=== PATIENT | male | born 1975 | race Caucasian/White ===

== ENCOUNTER 2016-10-24 05:17 | Emergency (ER) | payer MEDICAID ==
[~2016-10-24] VITALS: Ht 172.7 cm; Wt 90.7 kg
[2016-10-24 05:20] VITALS: BP_SYST 131
--- NOTE | 2016-10-24 05:20 | NUR ---
Patient to ER bed 8 to gown for evaluation. Side rails up.
--- NOTE | 2016-10-24 05:24 | NUR ---
Patient to ER C/O skin problems. Subjective "ring worms, scabies, rash" No signs of ring worm or scabies visualized. Small areas on left lower leg and abdomen of diffuse reddness. Denies pruritus or pain. No signs of secondary infection. AAOx4, unlabored breathing, no signs of acute distress.
--- NOTE | 2016-10-24 05:49 | NUR ---
ER MD Bearden at bedside evaluating the patient
[2016-10-24 06:00] LABS: BARBITURATE, URINE NEGATIVE (NEG <=200); BENZODIAZEPINE, URINE NEGATIVE (NEG <=150); CANNABINOID, URINE NEGATIVE (NEG <=50); COCAINE, URINE NEGATIVE (NEG <=150); METHAMPHETAMINES SCREEN,URINE NEGATIVE (NEG <=500); OPIATE, URINE NEGATIVE (NEG <=100); PHENCYCLIDINE SCREEN,URINE NEGATIVE (NEG <=25); UR TRICYCLIC ANTIDEPRESSANTS NEGATIVE (NEG <=300); URINE AMPHETAMINE NEGATIVE (NEG <=500); URINE METHADONE NEGATIVE (NEG <=200); URINE OXYCODONE SCREEN NEGATIVE (NEG <=100); URINE PROPOXYPHENE SCREEN NEGATIVE (NEG <=300)
--- NOTE | 2016-10-24 06:39 | NUR ---
ER MD Bearden aware of new set of VS
[2016-10-24] MEDS ORDERED: NACL 0.9% 1,000 ML IV ONE (06:45)
[2016-10-24] MEDS ORDERED: METOPROLOL TARTRATE 5 MG/5 ML VIAL IVP ONE (06:45)
--- NOTE | 2016-10-24 06:50 | NUR ---
# 20 gauge angiocath placed to left ac. Use of asceptic technique. Opsite placed over site. Blood return noted. Blood for lab drawn from site. Flushed with 10 cc of normal saline. No evidence of infiltration noted. Patient tolerated well.
[2016-10-24 07:05] LABS: BASOPHILS % (AUTO) 0.6 % (0.0-2.0); EOSINOPHILS # (AUTO) 0.2 K/uL (0.0-0.4); LYMPHOCYTES # (AUTO) 1.6 K/uL (1.0-5.5); MONOCYTES # (AUTO) 0.4 K/uL (0.0-1.0)
--- NOTE | 2016-10-24 07:06 | NUR ---
Care endorsed and report given to Luisa WALDRON via SBAR
[2016-10-24 07:07] LABS: EOSINOPHILS % (AUTO) 4.9 % (0.0-4.0); HEMOGLOBIN 15.1 g/dL (14.0-18.0); LYMPHOCYTES % (AUTO) 32.6 % (20.5-51.5); MEAN CORPUSCULAR HEMOGLOBIN 28 pg (27-31); MEAN CORPUSCULAR HGB CONC 32 % (32-36); MEAN CORPUSCULAR VOLUME 86 fL (79.0-98.0); MONOCYTES % (AUTO) 7.9 % (1.7-9.3); NEUTROPHILS # (AUTO) 2.8 K/uL (1.8-7.7); PLATELET COUNT (AUTO) 246 K/uL (130-430); RED BLOOD CELL COUNT(AUTO) 5.46 MIL/uL (4.2-6.2); RED CELL DISTRIBUTION WIDTH 12.8 % (9.0-15.0)
[2016-10-24 07:10] LABS: CALCIUM 9.2 mg/dL (8.4-11.0); CREATININE 1.07 mg/dL (0.55-1.30); POTASSIUM 3.9 mmol/L (3.5-5.1)
--- NOTE | 2016-10-24 07:10 | NUR ---
Received Pt in bed 8. Pt awake, alert, orientated x4. Pt breathing even and unlabored. Pt laying in bed. Updated Pt on the plan of care. Currently awaiting new orders. Will continue to monitor.
[2016-10-24 07:25] LABS: ALBUMIN 4.1 g/dL (3.4-4.8); THYROID STIMULATING HORMONE 1.21 uIu/mL (0.34-4.82); TOTAL BILIRUBIN 0.4 mg/dL (0.0-1.0)
--- NOTE | 2016-10-24 07:34 | NUR ---
Pt wanted to leave, spoke to Dr Bearden, who states may leave but to continue on the HTN medication and follow up PCP, BP is 175/125 and pt still wants to leave, states needs to get to work. Addendum: 10/24/16 at 0737 by ROXANNA Pt states he is just anxious and that is why the BP is high.
[2016-10-24 07:36] VITALS: BP_SYST 175
--- NOTE | 2016-10-24 07:36 | NUR ---
Patient given written and verbal discharge instructions and verbalizes understanding. ER MD discussed with patient the results and treatment provided. Patient in stable condition. ID arm band removed. IV catheter removed intact and dressing applied, no active bleeding. Rx of metoprolol and albuterol given. Patient educated on pain management and to follow up with PMD. Pain Scale 0. Opportunity for questions provided and answered.
== END 2016-10-24 07:36 | disposition home or self-care (01) ==
LOC: SED 05:17
DX: F41.9 Anxiety disorder, unspecified (principal); J45.909 Unspecified asthma, uncomplicated; I10 Essential (primary) hypertension; Z91.14 Patient's other noncompliance with medication regimen
CPT/HCPCS: 36415; 80053; 80307; 84443; 85025; 96361; 96374; 99284; J3490; J7030

== ENCOUNTER 2016-11-11 06:58 | Emergency (ER) | payer MEDICAID ==
[~2016-11-11] VITALS: Ht 172.7 cm; Wt 99.8 kg
[2016-11-11 07:00] VITALS: BP_SYST 173
--- NOTE | 2016-11-11 07:00 | NUR ---
BROUGHT BACK TO BED #8 AND TRIAGED. REPORT GIVEN TO JER
--- NOTE | 2016-11-11 07:05 | NUR ---
ER at bedside examining patient.
--- NOTE | 2016-11-11 07:10 | NUR ---
Pt presents to ED c/o "feeling off" and possible htn. Pt states being noncompliant w/ antihypertensives.Pt AAOX4 no acute distress noted. Pt has elevated BP.PT medicated for BP. Pt tolerated well. Will continue to monitor.
[2016-11-11] MEDS ORDERED: cloNIDine HCL 0.1 MG TABLET PO ONE ×2 (07:30→08:45)
[2016-11-11] MEDS ORDERED: ALBUTEROL SULFATE 0.083% 2.5 MG/3 ML VIAL.NEB INH ONE (07:30)
--- NOTE | 2016-11-11 07:30 | NUR ---
Pt medicated for BP.Continuing to monitor.
--- NOTE | 2016-11-11 08:40 | NUR ---
BP 157/113. Pt medicated prior to D/c.
[2016-11-11 09:05] VITALS: BP_SYST 146
--- NOTE | 2016-11-11 09:05 | NUR ---
Patient given written and verbal discharge instructions and verbalizes understanding. ER MD discussed with patient the results and treatment provided. Patient in stable condition. ID arm band removed. Rx of xanax,albuterol given. Patient educated on pain management and to follow up with PMD. Pain Scale 0. Opportunity for questions provided and answered.
== END 2016-11-11 09:05 | disposition home or self-care (01) ==
LOC: SED 06:58
DX: I10 Essential (primary) hypertension (principal); J45.909 Unspecified asthma, uncomplicated
CPT/HCPCS: 71010; 94640; 99283

== ENCOUNTER 2016-11-14 23:23 | Emergency (ER) | payer MEDICAID ==
[~2016-11-14] VITALS: Ht 175.3 cm; Wt 105.2 kg
[2016-11-14 23:29] VITALS: BP_SYST 150
[2016-11-15] MEDS ORDERED: hydrALAZINE HCL 10 MG TABLET PO ONE (00:45)
[2016-11-15] MEDS ORDERED: hydrALAZINE HCL 10 MG TABLET ONE (00:58)
[2016-11-15] MEDS ORDERED: IPRATROPIUM BROM 0.5 MG/2.5 ML VIAL.NEB (ATROVENT) INH ONE ×2 (01:00)
[2016-11-15] MEDS ORDERED: ALBUTEROL SULFATE 0.083% 2.5 MG/3 ML VIAL.NEB INH ONE ×2 (01:00)
[2016-11-15] MEDS ORDERED: PREDNISONE 20 MG TABLET PO ONE (01:00)
[2016-11-15 01:53] VITALS: BP_SYST 137
== END 2016-11-15 01:53 | disposition home or self-care (01) ==
LOC: SED 23:23
DX: Z76.0 Encounter for issue of repeat prescription (principal); J45.901 Unspecified asthma with (acute) exacerbation; I10 Essential (primary) hypertension; F41.9 Anxiety disorder, unspecified; Z91.14 Patient's other noncompliance with medication regimen
CPT/HCPCS: 94640; 99284; J7512

== ENCOUNTER 2021-06-27 04:40 | Emergency (ER) | payer MEDICAID ==
[~2021-06-27] VITALS: Ht 172.7 cm; Wt 97.5 kg
[2021-06-27 04:48] VITALS: BP_SYST 144
--- NOTE | 2021-06-27 04:55 | NUR ---
Patient to ER bed 5 to gown for evaluation. Side rails up. Report given to BIJU WALDRON
--- NOTE | 2021-06-27 05:20 | NUR ---
RUBEN Cuello at bedside examining patient. Addendum: 06/27/21 at 0533 by [email or web address] VANITA Flores
--- NOTE | 2021-06-27 05:20 | NUR ---
Pt brought self in from home with multiple complaints/symptoms. Pt reports experiencing elevated blood pressure with episodes of dizziness and headache. Pt states he has a lot of stressors with personal life that he is currently dealing with. Reports HX of HTN and anxiety. Arrived to ED in no acute distress. Breathing adequately on RA.
[2021-06-27] MEDS ORDERED: LORazepam 1 MG TABLET PO ONE (05:30)
--- NOTE | 2021-06-27 05:33 | NUR ---
RAD at bedside for imaging.
[2021-06-27] MEDS ORDERED: LORazepam 1 MG TABLET ONE (05:57)
[2021-06-27 06:39] LABS: BARBITURATE, URINE NEGATIVE (NEG <=200); BENZODIAZEPINE, URINE NEGATIVE (NEG <=150); CANNABINOID, URINE NEGATIVE (NEG <=50); COCAINE, URINE NEGATIVE (NEG <=150); METHAMPHETAMINES SCREEN,URINE NEGATIVE (NEG <=500); OPIATE, URINE NEGATIVE (NEG <=100); PHENCYCLIDINE SCREEN,URINE NEGATIVE (NEG <=25); UR TRICYCLIC ANTIDEPRESSANTS NEGATIVE (NEG <=300); URINE AMPHETAMINE NEGATIVE (NEG <=500); URINE METHADONE NEGATIVE (NEG <=200); URINE OXYCODONE SCREEN NEGATIVE (NEG <=100); URINE PROPOXYPHENE SCREEN NEGATIVE (NEG <=300)
[2021-06-27 06:40] LABS: BASOPHILS % (AUTO) 0.6 % (0.0-2.0); EOSINOPHILS # (AUTO) 0.2 K/uL (0.0-0.4); EOSINOPHILS % (AUTO) 3.6 % (0.0-4.0); HEMATOCRIT 46.7 % (36-54); HEMOGLOBIN 15.7 g/dL (14.0-18.0); LYMPHOCYTES # (AUTO) 1.3 K/uL (1.0-5.5); LYMPHOCYTES % (AUTO) 25.1 % (20.5-51.5); MEAN CORPUSCULAR HEMOGLOBIN 29 pg (27-31); MEAN CORPUSCULAR HGB CONC 34 % (32-36); MEAN CORPUSCULAR VOLUME 86 fL (79.0-98.0); MONOCYTES # (AUTO) 0.6 K/uL (0.0-1.0); MONOCYTES % (AUTO) 11.7 % (1.7-9.3); NEUTROPHILS # (AUTO) 3.1 K/uL (1.8-7.7); PLATELET COUNT (AUTO) 249 K/uL (130-430); RED BLOOD CELL COUNT(AUTO) 5.42 MIL/uL (4.2-6.2); RED CELL DISTRIBUTION WIDTH 14.2 % (9.0-15.0); WHITE BLOOD COUNT (AUTO) 5.3 K/uL (4.8-10.8)
[2021-06-27 06:44] LABS: ANION GAP 8 (5-15); CALCIUM 8.3 mg/dL (8.4-11.0); CHLORIDE 101 mmol/L (98-107); CREATININE 0.89 mg/dL (0.55-1.30); GLUCOSE 92 mg/dL (70-99); POTASSIUM 3.8 mmol/L (3.5-5.1); SODIUM SERUM 134 mmol/L (136-145); UREA NITROGEN, BLOOD 19 mg/dL (8-21)
[2021-06-27 06:51] LABS: ALANINE AMINOTRANSFERASE 30 U/L (12-78); ASPARTATE AMINOTRANSFERASE 15 U/L (10-37); TOTAL BILIRUBIN 0.4 mg/dL (0.0-1.0)
[2021-06-27 07:22] LABS: GFR AFRICAN AMERICAN 119 mL/min (>90)
[2021-06-27 07:37] VITALS: BP_SYST 169
--- NOTE | 2021-06-27 07:41 | NUR ---
Patient given written and verbal discharge instructions and verbalizes understanding. ER MD discussed with patient the results and treatment provided. Patient in stable condition. ID arm band removed. Rx of given. Patient educated on pain management and to follow up with PMD. Pain Scale . Opportunity for questions provided and answered. Medication side effect fact sheet provided.
--- NOTE | 2021-06-27 07:45 | NUR ---
ED physician aware if elevated BP and comfortable with pt D/C. Will go home and take home meds.
== END 2021-06-27 07:37 | disposition home or self-care (01) ==
LOC: SED 04:40
DX: I10 Essential (primary) hypertension (principal); F43.0 Acute stress reaction; Z79.899 Other long term (current) drug therapy
CPT/HCPCS: 36415; 71045; 80053; 80307; 84484; 85025; 93005; 99285

== ENCOUNTER 2021-10-21 05:02 | Emergency (ER) | payer MEDICAID ==
[~2021-10-21] VITALS: Ht 172.7 cm; Wt 97.5 kg
[2021-10-21 05:10] VITALS: BP_SYST 163
[2021-10-21] MEDS ORDERED: FLUT1BLS3 INH (05:28)
[2021-10-21] MEDS ORDERED: AMLO5TAB4 PO (05:28)
[2021-10-21] MEDS ORDERED: BENA1TAB73 PO (05:28)
[2021-10-21] MEDS ORDERED: LISINOPRIL 10 MG TABLET (PRINIVIL) PO ONE (05:30)
[2021-10-21 05:40] VITALS: BP_SYST 159
== END 2021-10-21 05:42 | disposition home or self-care (01) ==
LOC: SED 05:02
DX: I10 Essential (primary) hypertension (principal); J45.909 Unspecified asthma, uncomplicated; Z79.899 Other long term (current) drug therapy
CPT/HCPCS: 99283

== ENCOUNTER 2021-12-07 04:45 | Emergency (ER) | payer MEDICAID ==
[~2021-12-07] VITALS: Ht 172.7 cm; Wt 99.8 kg
[~2021-12-07 04:45] MED LIST: AMLO5TAB4 PO; BENA1TAB73 PO; FLUT1BLS3 INH
[2021-12-07 05:22] VITALS: BP_SYST 160
[2021-12-07] MEDS ORDERED: HYDROCHLOROTHIAZIDE 12.5 MG CAPSULE (HCTZ) PO ONE (05:30)
[2021-12-07] MEDS ORDERED: BENAZEPRIL HCL 20 MG TABLET (LOTENSIN) PO ONE (05:30)
[2021-12-07 06:15] LABS: BILIRUBIN,URINE NEGATIVE (NEGATIVE); BLOOD, URINE NEGATIVE (NEGATIVE); CLARITY/URINE CLEAR (CLEAR); COLOR,URINE YELLOW (YELLOW); GLUCOSE,URINE NEGATIVE (NEGATIVE); KETONES,URINE NEGATIVE (NEGATIVE); LEUKOCYTE ESTERASE ,URINE NEGATIVE (NEGATIVE); NITRITE, URINE NEGATIVE (NEGATIVE); PROTEIN URINE NEGATIVE (NEGATIVE); UROBILINOGEN,URINE 0.2 (0.2-1.0)
[2021-12-07] MEDS ORDERED: BENA1TAB19 PO (06:20)
[2021-12-07] MEDS ORDERED: LISINOPRIL 10 MG TABLET (PRINIVIL) PO ONE (06:30)
[2021-12-07 06:32] LABS: CALCIUM 8.9 mg/dL (8.4-11.0); CREATININE 1.12 mg/dL (0.55-1.30)
[2021-12-07 06:47] VITALS: BP_SYST 155
== END 2021-12-07 06:47 | disposition home or self-care (01) ==
LOC: SED 04:45
DX: I10 Essential (primary) hypertension (principal); J45.909 Unspecified asthma, uncomplicated; Z79.899 Other long term (current) drug therapy
CPT/HCPCS: 36415; 80048; 81003; 99283

== ENCOUNTER 2022-03-25 00:40 | Emergency (ER) | payer MEDICAID ==
[~2022-03-25] VITALS: Ht 172.7 cm; Wt 104.3 kg
[~2022-03-25 00:40] MED LIST changes: +BENA1TAB19 PO
[2022-03-25 00:45] VITALS: BP_SYST 203
--- NOTE | 2022-03-25 00:45 | NUR ---
Pt placed to ER bed 02, report given to VANITA Sotelo.
[2022-03-25] MEDS ORDERED: BENA1TAB19 PO (00:57)
[2022-03-25] MEDS ORDERED: AMLO5TAB4 PO (00:57)
--- NOTE | 2022-03-25 01:00 | NUR ---
Dr. Foote at bedside.
--- NOTE | 2022-03-25 01:12 | NUR ---
Received in ED 2.
[2022-03-25] MEDS ORDERED: LORazepam 2 MG/ML VIAL IVP ONE (01:15)
[2022-03-25] MEDS ORDERED: ENALAPRILAT DIHYDRATE 1.25 MG/ML VIAL IVP ONE (01:15)
[2022-03-25] MEDS ORDERED: ASPIRIN 325 MG TABLET ONE (01:37)
[2022-03-25] MEDS ORDERED: LABETALOL HCL 20 MG/4 ML CARTRIDGE IVP ONE ×2 (01:45→03:15)
[2022-03-25] MEDS ORDERED: ASPIRIN 325 MG TABLET PO ONE (01:45)
[2022-03-25 01:51] LABS: BASOPHILS % (AUTO) 0.5 % (0.0-2.0); EOSINOPHILS # (AUTO) 0.1 K/uL (0.0-0.4); EOSINOPHILS % (AUTO) 1.9 % (0.0-4.0); HEMATOCRIT 44.7 % (36-54); HEMOGLOBIN 14.8 g/dL (14.0-18.0); LYMPHOCYTES # (AUTO) 1.1 K/uL (1.0-5.5); LYMPHOCYTES % (AUTO) 21.2 % (20.5-51.5); MEAN CORPUSCULAR HEMOGLOBIN 29 pg (27-31); MEAN CORPUSCULAR HGB CONC 33 % (32-36); MEAN CORPUSCULAR VOLUME 87 fL (79.0-98.0); MONOCYTES # (AUTO) 0.7 K/uL (0.0-1.0); MONOCYTES % (AUTO) 12.7 % (1.7-9.3); NEUTROPHILS # (AUTO) 3.4 K/uL (1.8-7.7); NEUTROPHILS % (AUTO) 63.7 % (40.0-70.0); PLATELET COUNT (AUTO) 224 K/uL (130-430); RED BLOOD CELL COUNT(AUTO) 5.14 MIL/uL (4.2-6.2); WHITE BLOOD COUNT (AUTO) 5.3 K/uL (4.8-10.8)
[2022-03-25 01:55] LABS: CALCIUM 8.5 mg/dL (8.4-11.0); CREATININE 1.05 mg/dL (0.55-1.30)
[2022-03-25 02:01] LABS: ALBUMIN 3.8 g/dL (3.4-4.8); TOTAL BILIRUBIN 0.3 mg/dL (0.0-1.0)
[2022-03-25 02:10] LABS: BARBITURATE, URINE NEGATIVE (NEG <=200); BENZODIAZEPINE, URINE POSITIVE (NEG <=150); CANNABINOID, URINE NEGATIVE (NEG <=50); COCAINE, URINE NEGATIVE (NEG <=150); METHAMPHETAMINES SCREEN,URINE NEGATIVE (NEG <=500); OPIATE, URINE NEGATIVE (NEG <=100); PHENCYCLIDINE SCREEN,URINE NEGATIVE (NEG <=25); UR TRICYCLIC ANTIDEPRESSANTS NEGATIVE (NEG <=300); URINE AMPHETAMINE NEGATIVE (NEG <=500); URINE METHADONE NEGATIVE (NEG <=200); URINE OXYCODONE SCREEN NEGATIVE (NEG <=100); URINE PROPOXYPHENE SCREEN NEGATIVE (NEG <=300)
[2022-03-25] MEDS ORDERED: FLUT1BLS5 IH (02:41)
[2022-03-25] MEDS ORDERED: FLUT16SP16 NS (02:41)
[2022-03-25] MEDS ORDERED: CEL20 PO (02:41)
[2022-03-25 04:44] VITALS: BP_SYST 158
--- NOTE | 2022-03-25 04:46 | NUR ---
Patient given written and verbal discharge instructions and verbalizes understanding. ER MD discussed with patient the results and treatment provided. Patient in stable condition. ID arm band removed. IV catheter removed intact and dressing applied, no active bleeding. Rx of Benazepril/HCTZ, celexa, fluticasone, Amlodipine given. Pain Scale 0. Opportunity for questions provided and answered.
== END 2022-03-25 04:44 | disposition home or self-care (01) ==
LOC: SED 00:40
DX: I10 Essential (primary) hypertension (principal); F41.9 Anxiety disorder, unspecified; R07.81 Pleurodynia; J45.909 Unspecified asthma, uncomplicated; Z79.899 Other long term (current) drug therapy
CPT/HCPCS: 99284; 96374; 96375; 80307; 80053; 85025; 36415; 96376; J2060; 93005

== ENCOUNTER 2022-04-06 12:50 | Emergency (ER) | payer MEDICAID ==
[~2022-04-06] VITALS: Ht 172.7 cm; Wt 102.1 kg
[~2022-04-06 12:50] MED LIST changes: +CEL20 PO; +FLUT16SP16 NS; +FLUT1BLS5 IH
[2022-04-06 12:55] VITALS: BP_SYST 173
--- NOTE | 2022-04-06 13:00 | NUR ---
Patient triaged and placed in waiting room. VSS and patient appears in no acute distress at this time. Accompanied by SELF, awaiting available bed, and MD notified of need for MSE. PT AWARE OF PTS BLOOD PRESSURE
--- NOTE | 2022-04-06 13:10 | NUR ---
PT STATES THAT HE HAS HIGH BLOOD PRESSURE, PT STATES HE CHECKED IN "CAUSE WHY NOT MY MOM IS IN ER". PT STATES HE IS GOING THROUGH AN EVICTION PROCESS, STATES HE WANTS TO GET AN LETTER FROM DR SHAH TO STOP HIS EVICTION. PT WITH HIGH BLOOD PRESSURE BUT NOT COMPLIANT WITH MEDS.
--- NOTE | 2022-04-06 13:20 | NUR ---
DR SHAH EVALUATED PT IN TRIAGE ROOM
[2022-04-06] MEDS ORDERED: LABETALOL HCL 20 MG/4 ML CARTRIDGE IVP ONE (13:30)
--- NOTE | 2022-04-06 14:31 | NUR ---
Patient to ER bed 5 to gown for evaluation. Side rails up.
--- NOTE | 2022-04-06 14:31 | NUR ---
pt ambulated from ed lobby to bed 5, no acute distress noted. breathing even and unlabored. pt awake a/o x4 and verbally responsive. pt reports having a headache and appears to be anxious. redirected pt and provided therapeutic communication. pt reports "i have anxiety and im real stressed out". verbally redirected pt again and attempted calming measures.
--- NOTE | 2022-04-06 14:48 | NUR ---
pt called RN into room, pt reports that he wants to "check out" stating "my blood pressure isnt going to change, i want to see my mom. i have a lot going on so thats not going to change. i dont need medications or anything. im going to check out and see my mom. its not going to get better because im sressed" informed md wright.
--- NOTE | 2022-04-06 15:03 | NUR ---
lab informed MD and RN that pt continues to refuse lab draw. RN went to talk to pt, pt stated "i dont want anything done, i dont need anything because im stressed. im going to just check myelf out". informed pt that md james was aware and offered pt to wait to be assessed by . pt continued to refuse and became demanding of going to see his mother. informed pt that he is a patient and cant be walking around ER, informed him that we are still awaiting results for mother. pt continued to raise voice stating "im going to check out and come back to see my mom", pt escorted out of ER and back to lobby. md james made aware. Addendum: 04/06/22 at 1509 by [email or web address] pt left AMA, no paperwork and refused second set of vital signs
== END 2022-04-06 15:03 | disposition home or self-care (01) ==
LOC: SED 12:50
DX: I10 Essential (primary) hypertension (principal); Z53.21 Procedure and treatment not carried out due to patient leaving prior to being seen by health care provider